=== PATIENT | female | born 1985 | race Caucasian/White ===

== ENCOUNTER 2020-10-18 13:22 | Emergency (ER) | payer BC, OTHER ==
[~2020-10-18] VITALS: Ht 26.3 cm; Wt 63.5 kg
[2020-10-18] MEDS ORDERED: ONDANSETRON 4 MG (ZOFRAN) ORAL DISSOLVE TAB PO STA (13:51)
--- NOTE | 2020-10-18 13:57 | ED General ---
General Stated Complaint: BARNETT,DIARRHEA,BARNETT Source of Information: Patient Exam Limitations: No Limitations History of Present Illness Date Seen by Provider: Oct 18, 2020 Time Seen by Provider: 13:56 Initial Comments To ER accompanied by her 14-year-old son both of whom have headache fever nausea vomiting diarrhea onset last night. Temperature max of 102. She questions food poisoning as she has symptoms along with several other members of her family that began after eating spaghetti. Timing/Duration: 1-2 Days Severity: Moderate Associated Systoms: Headaches, Nausea/Vomiting Allergies and Home Medications Allergies Coded Allergies: No Known Drug Allergies (Unverified , 10/18/20) Patient Home Medication List Home Medication List Reviewed: Yes Review of Systems Review of Systems Constitutional: see HPI, chills, fever, malaise EENTM: see HPI Respiratory: no symptoms reported Cardiovascular: no symptoms reported Gastrointestinal: abdominal pain, nausea, vomiting Genitourinary: no symptoms reported Musculoskeletal: no symptoms reported Skin: no symptoms reported Psychiatric/Neurological: No Symptoms Reported Hematologic/Lymphatic: No Symptoms Reported Physical Exam Vital Signs Vital Signs - First Documented 10/18/20 14:11 Temp 38.7 Pulse 132 Resp 20 B/P (MAP) 99/68 (78) Pulse Ox 96 O2 Delivery Room Air Capillary Refill : Height, Weight, BMI Height: '" Weight: lbs. oz. kg; BMI Method: General Appearance: No Apparent Distress, WD/WN Eyes: Bilateral Eye Normal Inspection, Bilateral Eye PERRL HEENT: PERRL/EOMI, TMs Normal Neck: Full Range of Motion, Normal Inspection Respiratory: No Accessory Muscle Use, No Respiratory Distress Cardiovascular: Regular Rate, Rhythm, Normal Peripheral Pulses Gastrointestinal: Normal Bowel Sounds, Soft, Tenderness Extremity: Normal Capillary Refill, Normal Inspection Neurologic/Psychiatric: Alert, Oriented x3 Skin: Normal Color, Warm/Dry Progress/Results/Core Measures Suspected Sepsis SIRS Temperature: Pulse: Respiratory Rate: Laboratory Tests 10/18/20 14:41: White Blood Count 9.4 Blood Pressure / Mean: Laboratory Tests 10/18/20 14:41: Creatinine 0.89, Platelet Count 201, Total Bilirubin 0.5 Results/Orders Lab Results Laboratory Tests Test 10/18/20 13:57 10/18/20 14:02 10/18/20 14:41 Range/Units Coronavirus 2019 ([facility]) Negative Negative White Blood Count 9.4 4.3-11.0 10^3/uL Red Blood Count 4.57 3.80-5.11 10^6/uL Hemoglobin 13.4 11.5-16.0 g/dL Hematocrit 40 35-52 % Mean Corpuscular Volume 88 80-99 fL Mean Corpuscular Hemoglobin 29 25-34 pg Mean Corpuscular Hemoglobin Concent 33 32-36 g/dL Red Cell Distribution Width 12.4 10.0-14.5 % Platelet Count 201 130-400 10^3/uL Mean Platelet Volume 10.2 9.0-12.2 fL Immature Granulocyte % (Auto) 0 % Neutrophils (%) (Auto) 82 H 42-75 % Lymphocytes (%) (Auto) 12 12-44 % Monocytes (%) (Auto) 5 0-12 % Eosinophils (%) (Auto) 0 0-10 % Basophils (%) (Auto) 0 0-10 % Neutrophils # (Auto) 7.8 1.8-7.8 10^3/uL Lymphocytes # (Auto) 1.1 1.0-4.0 10^3/uL Monocytes # (Auto) 0.5 0.0-1.0 10^3/uL Eosinophils # (Auto) 0.0 0.0-0.3 10^3/uL Basophils # (Auto) 0.0 0.0-0.1 10^3/uL Immature Granulocyte # (Auto) 0.0 0.0-0.1 10^3/uL Sodium Level 136 135-145 MMOL/L Potassium Level 3.6 3.6-5.0 MMOL/L Chloride Level 102 98-107 MMOL/L Carbon Dioxide Level 23 21-32 MMOL/L Anion Gap 11 5-14 MMOL/L Blood Urea Nitrogen 14 7-18 MG/DL Creatinine 0.89 0.60-1.30 MG/DL Estimat Glomerular Filtration Rate > 60 BUN/Creatinine Ratio 16 Glucose Level 103 70-105 MG/DL Calcium Level 8.5 8.5-10.1 MG/DL Corrected Calcium 8.4 L 8.5-10.1 MG/DL Total Bilirubin 0.5 0.1-1.0 MG/DL Aspartate Amino Transf (AST/SGOT) 16 5-34 U/L Alanine Aminotransferase (ALT/SGPT) 22 0-55 U/L Alkaline Phosphatase 74 40-136 U/L C-Reactive Protein High Sensitivity 3.00 H 0.00-0.50 MG/DL Total Protein 7.0 6.4-8.2 GM/DL Albumin 4.1 3.2-4.5 GM/DL Micro Results Microbiology 10/18/20 Influenza Types A,B Antigen ([facility]OS[facility]) - Final, Complete My Orders Orders - JOSSUE SMITH APRN Influenza A And B Antigens (10/18/20 13:51) Covid 19 Inhouse Test (10/18/20 13:51) Coronavirus Sars-Cov-2 So 2018 (10/18/20 13:51) Ondansetron Oral Dissolve Tab (Zofran (10/18/20 13:51) Ibuprofen Tablet (Motrin Tablet) (10/18/20 14:00) Cbc With Automated Diff (10/18/20 14:34) Comprehensive Metabolic Panel (10/18/20 14:34) Hs C Reactive Protein (10/18/20 14:34) Ed Iv/Invasive Line Start (10/18/20 14:34) Lactated Ringers (Lr 1000 Ml Iv Solution (10/18/20 14:45) Medications Given in ED Current Medications Medications Dose Ordered Sig/Ganesh Route Start Time Stop Time Status Last Admin Dose Admin Ibuprofen 800 mg ONCE ONCE PO 10/18/20 14:00 10/18/20 14:01 DC 10/18/20 14:19 800 MG Vital Signs/I&O 10/18/20 14:11 Temp 38.7 Pulse 132 Resp 20 B/P (MAP) 99/68 (78) Pulse Ox 96 O2 Delivery Room Air Capillary Refill : Departure Impression Primary Impression: Nausea and vomiting Qualified Codes: R11.2 - Nausea with vomiting, unspecified Additional Impressions: Diarrhea Qualified Codes: R19.7 - Diarrhea, unspecified Headache Qualified Codes: R51.9 - Headache, unspecified Disposition: 01 HOME, SELF-CARE Condition: Stable Departure-Patient Inst. Decision time for Depature: 15:21 Patient Instructions: No Instuctions Given Add. Discharge Instructions: 1. Do your best to avoid using Imodium. Drink plenty of fluids to stay hyd rated. Pedialyte is a great choice. Tylenol and ibuprofen for fever control. Follow-up with your doctor later this week for recheck. Return to ER for any worsening symptoms or bloody stools. Work/School Note: Work Release Form Date Seen in the Emergency Department: Oct 18, 2020 Return to Work: Oct 21, 2020 JOSSUE SMITH APRN Oct 18, 2020 13:57
[2020-10-18] MEDS ORDERED: IBUPROFEN 800 MG (MOTRIN) TAB PO ONE (14:00)
[2020-10-18] MEDS ORDERED: LACTATED RINGERS 1,000 ML IV SCH (14:45)
[2020-10-18 14:47] LABS: BASOPHILS % (AUTO) 0 % (0-10); EOSINOPHILS % (AUTO) 0 % (0-10); HEMATOCRIT 40 % (35-52); HEMOGLOBIN 13.4 g/dL (11.5-16.0); LYMPHOCYTES # (AUTO) 1.1 10^3/uL (1.0-4.0); LYMPHOCYTES % (AUTO) 12 % (12-44); MEAN CORPUSCULAR HEMOGLOBIN 29 pg (25-34); MEAN CORPUSCULAR HGB CONC 33 g/dL (32-36); MEAN CORPUSCULAR VOLUME 88 fL (80-99); MEAN PLATELET VOLUME 10.2 fL (9.0-12.2); MONOCYTES # (AUTO) 0.5 10^3/uL (0.0-1.0); MONOCYTES % (AUTO) 5 % (0-12); NEUTROPHILS # (AUTO) 7.8 10^3/uL (1.8-7.8); NEUTROPHILS % (AUTO) 82 % (42-75); PLATELET COUNT 201 10^3/uL (130-400); WHITE BLOOD COUNT 9.4 10^3/uL (4.3-11.0)
[2020-10-18 14:55] LABS: ALBUMIN 4.1 GM/DL (3.2-4.5); CHLORIDE 102 MMOL/L (98-107); POTASSIUM 3.6 MMOL/L (3.6-5.0); SODIUM 136 MMOL/L (135-145)
[2020-10-18 14:57] LABS: CALCIUM 8.5 MG/DL (8.5-10.1)
[2020-10-18 14:58] LABS: GLUCOSE 103 MG/DL (70-105)
[2020-10-18 14:59] LABS: CARBON DIOXIDE 23 MMOL/L (21-32)
[2020-10-18 15:00] LABS: BILIRUBIN,TOTAL 0.5 MG/DL (0.1-1.0)
[2020-10-18 15:01] LABS: ALKALINE PHOSPHATASE 74 U/L (40-136)
[2020-10-18 15:02] LABS: CREATININE SERUM 0.89 MG/DL (0.60-1.30); GFR ESTIMATED > 60
[2020-10-18 15:03] LABS: BUN/CREATININE RATIO 16
[2020-10-18 15:04] LABS: ALANINE AMINOTRANSFERASE 22 U/L (0-55)
[2020-10-18 15:50] VITALS: BP 110/74
== END 2020-10-18 15:52 | disposition home or self-care (01) ==
LOC: ER 13:25
DX: R11.2 Nausea with vomiting, unspecified (principal); R19.7 Diarrhea, unspecified; R51.9 Headache, unspecified; Z20.822 Contact with and (suspected) exposure to COVID-19
CPT/HCPCS: 80053; 85025; 86141; 87804; U0002; 36415; 87635

== ENCOUNTER 2021-06-09 12:57 | Emergency (ER) | payer BC ==
[~2021-06-09] VITALS: Ht 172.7 cm; Wt 65.8 kg
--- NOTE | 2021-06-09 13:25 | ED Abdominal Pain ---
General Stated Complaint: RLQ PAIN Source of Information: Patient Exam Limitations: No Limitations History of Present Illness Date Seen by Provider: Jun 09, 2021 Time Seen by Provider: 13:10 Initial Comments 36-year-old female with no significant past medical history coming in due to lower abdominal pain. Started abruptly at 1030 this morning and initially was on the left side of her abdomen and she thought it was gas pain. Pain is now moved to the right side of her abdomen, is moderate, constant, sharp. Associated nausea but no vomiting. No fever. Had a normal bowel movement yesterday but no diarrhea today. Has had pain like this in the left lower quadrant before and she said was related to her ovarian cyst. Denies ever havi ng pain like this on the right side. Is otherwise denying any other acute complaints. LMP was 2 days ago. She has had a tubal ligation. Denies any concerns for an STI. Is monogamous with her and is not having any unusual vaginal discharge. Allergies and Home Medications Allergies Coded Allergies: No Known Drug Allergies (Unverified , 10/18/20) Patient Home Medication List Home Medication List Reviewed: Yes Review of Systems Review of Systems Constitutional: No fever EENTM: No Symptoms Reported Respiratory: Denies Cough Cardiovascular: Denies Chest Pain Gastrointestinal: Abdominal Pain; Denies Diarrhea; Nausea; Denies Vomiting Genitourinary: Denies Burning, Denies Discharge, Denies Frequency, Denies Flank Pain, Denies Hematuria Musculoskeletal: No back pain, No joint pain Skin: No rash Psychiatric/Neurological: No Symptoms Reported Endocrine: No Symptoms Reported Hematologic/Lymphatic: No Symptoms Reported All Other Systems Reviewed Negative Unless Noted: Yes Past Lhkqghy-Apiwmk-Nzjofs Hx Patient Social History Tobacco Use?: Yes Tobacco type used: Cigarettes Past Medical History Surgeries: Yes Tubal Ligation Respiratory: No Cardiac: No Neurological: No Genitourinary: No Gastrointestinal: No Musculoskeletal: No Endocrine: No HEENT: No Cancer: No Psychosocial: No Integumentary: No Blood Disorders: No Physical Exam Vital Signs Vital Signs - First Documented 06/09/21 13:10 Temp 36.9 Pulse 91 Resp 18 B/P (MAP) 110/69 (83) Pulse Ox 100 O2 Delivery Room Air Capillary Refill : Height/Weight/BMI Height: '" Weight: lbs. oz. kg; 918.00 BMI Method: General Appearance: WD/WN, no apparent distress HEENT: PERRL/EOMI, normal ENT inspection, pharynx normal Neck: non-tender, full range of motion, supple, normal inspection Respiratory: chest non-tender, lungs clear, normal breath sounds, no respiratory distress, no accessory muscle use Cardiovascular: regular rate, rhythm, no edema, no murmur Gastrointestinal: normal bowel sounds, soft; No distended, No guarding, No rebound; tenderness (RLQ) Extremities: normal range of motion, non-tender, normal inspection, no pedal edema, no calf tenderness, normal capillary refill Back: normal inspection, no CVA tenderness, no vertebral tenderness Neurologic/Psychiatric: no motor/sensory deficits, alert, normal mood/affect Skin: normal color, warm/dry Lymphatic: no adenopathy Progress/Results/Core Measures Results/Orders Lab Results Laboratory Tests Test 06/09/21 13:11 06/09/21 13:24 Range/Units Urine Color YELLOW Urine Clarity SL CLOUDY Urine pH 6.0 5-9 Urine Specific [place] 1.020 1.016-1.022 Urine Protein NEGATIVE NEGATIVE Urine Glucose (UA) NEGATIVE NEGATIVE Urine Ketones NEGATIVE NEGATIVE Urine Nitrite NEGATIVE NEGATIVE Urine Bilirubin NEGATIVE NEGATIVE Urine Urobilinogen 0.2 < = 1.0 MG/DL Urine Leukocyte Esterase NEGATIVE NEGATIVE Urine RBC (Auto) 2+ H NEGATIVE Urine RBC 2-5 H /HPF Urine WBC 2-5 /HPF Urine Squamous Epithelial Cells 5-10 /HPF Urine Crystals NONE /LPF Urine Bacteria FEW H /HPF Urine Casts NONE /LPF Urine Mucus NEGATIVE /LPF Urine Culture Indicated NO White Blood Count 7.3 4.3-11.0 10^3/uL Red Blood Count 4.26 3.80-5.11 10^6/uL Hemoglobin 12.9 11.5-16.0 g/dL Hematocrit 38 35-52 % Mean Corpuscular Volume 90 80-99 fL Mean Corpuscular Hemoglobin 30 25-34 pg Mean Corpuscular Hemoglobin Concent 34 32-36 g/dL Red Cell Distribution Width 12.6 10.0-14.5 % Platelet Count 256 130-400 10^3/uL Mean Platelet Volume 10.3 9.0-12.2 fL Immature Granulocyte % (Auto) 0 % Neutrophils (%) (Auto) 52 42-75 % Lymphocytes (%) (Auto) 38 12-44 % Monocytes (%) (Auto) 8 0-12 % Eosinophils (%) (Auto) 2 0-10 % Basophils (%) (Auto) 0 0-10 % Neutrophils # (Auto) 3.8 1.8-7.8 10^3/uL Lymphocytes # (Auto) 2.8 1.0-4.0 10^3/uL Monocytes # (Auto) 0.6 0.0-1.0 10^3/uL Eosinophils # (Auto) 0.1 0.0-0.3 10^3/uL Basophils # (Auto) 0.0 0.0-0.1 10^3/uL Immature Granulocyte # (Auto) 0.0 0.0-0.1 10^3/uL Sodium Level 138 135-145 MMOL/L Potassium Level 3.5 L 3.6-5.0 MMOL/L Chloride Level 106 98-107 MMOL/L Carbon Dioxide Level 23 21-32 MMOL/L Anion Gap 9 5-14 MMOL/L Blood Urea Nitrogen 10 7-18 MG/DL Creatinine 0.87 0.60-1.30 MG/DL Estimat Glomerular Filtration Rate 75 BUN/Creatinine Ratio 11 Glucose Level 88 70-105 MG/DL Calcium Level 9.0 8.5-10.1 MG/DL Corrected Calcium 8.9 8.5-10.1 MG/DL Total Bilirubin 0.3 0.1-1.0 MG/DL Aspartate Amino Transf (AST/SGOT) 23 5-34 U/L Alanine Aminotransferase (ALT/SGPT) 24 0-55 U/L Alkaline Phosphatase 76 40-136 U/L Total Protein 6.8 6.4-8.2 GM/DL Albumin 4.1 3.2-4.5 GM/DL Lipase 15 8-78 U/L My Orders Orders - ARIELLA GRUBER MD Urine Bedside (06/09/21 13:18) Lipase (06/09/21 13:18) Ct Abd/Pelv W (Appendicitis) (06/09/21 13:18) Ondansetron Injection (Zofran Injectio (06/09/21 13:30) Morphine Injection (Morphine Injection (06/09/21 13:30) Cbc With Automated Diff (06/09/21 13:24) Iohexol Injection (Omnipaque 350 Mg/Ml 1 (06/09/21 13:45) Received Contrast (Hold Metformin- Contr (06/09/21 13:45) Ns (Ivpb) (Sodium Chloride 0.9% Ivpb Bag (06/09/21 13:45) Comprehensive Metabolic Panel (06/09/21 13:51) Ketorolac Injection (Toradol Injection) (06/09/21 14:15) Ketorolac Injection (Toradol Injection) (06/09/21 14:24) Us Non Ob Pelvis Comp/Transvag (06/09/21 14:26) Medications Given in ED Current Medications Medications Dose Ordered Sig/Ganesh Route Start Time Stop Time Status Last Admin Dose Admin Iohexol 100 ml ONCE ONCE IV 06/09/21 13:45 06/09/21 13:46 DC 06/09/21 13:56 85 ML Ketorolac Tromethamine 15 mg ONCE ONCE IVP 06/09/21 14:15 06/09/21 14:16 DC 06/09/21 14:26 15 MG Morphine Sulfate 4 mg ONCE ONCE IVP 06/09/21 13:30 06/09/21 13:31 DC 06/09/21 13:32 4 MG Ondansetron HCl 4 mg ONCE ONCE IVP 06/09/21 13:30 06/09/21 13:31 DC 06/09/21 13:32 4 MG Sodium Chloride 100 ml ONCE ONCE IV 06/09/21 13:45 06/09/21 13:46 DC 06/09/21 13:57 80 ML Vital Signs/I&O 06/09/21 13:10 Temp 36.9 Pulse 91 Resp 18 B/P (MAP) 110/69 (83) Pulse Ox 100 O2 Delivery Room Air Progress Progress Note : Progress Note 36-year-old female with above history coming in due to right lower quadrant abdominal pain. ABCs were intact and vitals were stable on presentation. Physical exam reassuring other than she does have right lower quadrant abdominal pain with no signs of peritonitis. Labs were reassuring with no obvious cause for pain. CT abdomen and pelvis negative on my interpretation specifically for any obvious appendicitis. Ultrasound then performed and was also negative for ovarian torsion. Pain improved after morphine and then Toradol IV. I repeated her abdominal exam and at this point she had no tenderness. I believe she is stable for discharge with outpatient follow-up. She was sent home with strict return precautions. Diagnostic Imaging Diagonstic Imaging: CT Plain Films/CT/US/NM/MRI: abdomen, pelvis Comments [facility], [place] NAME: CHER ROSADO [facility] REC#: [id number] PT STATUS: REG ER : 1985 PHYSICIAN: ARIELLA GRUBER MD ADMIT DATE: 06/09/21/ER Draft Date of Exam:06/09/21 CT ABD/PELV W (APPENDICITIS) EXAMINATION: CT abdomen and pelvis with contrast from 06/09/2021. TECHNIQUE: Multiple contiguous axial images were obtained through the abdomen and pelvis after the administration of intravenous contrast. All CT scans use one or more of the following dose optimizing techniques: automated exposure control, MA and/or KvP adjustment based on patient size and exam type or iterative reconstruction. INDICATION: Right lower quadrant pain since earlier today. Nausea. FINDINGS: Lung bases appear clear. Liver is unremarkable other than fatty infiltration. Gallbladder and spleen are normal. Adrenal glands and pancreas are unremarkable. Kidneys are within normal limits. There is no ascites or free air. Appendix is unremarkable. There is no acute osseous abnormality. IMPRESSION: 1. Normal appearance of the appendix. Incidental findings as noted above with no acute process appreciated. Dictated on workstation # [id number] Dict: 06/09/21 1402 Trans: 06/09/21 1418 [id number] Interpreted by: MARY REYES MD Electronically signed by: Departure Impression Primary Impression: RLQ abdominal pain Disposition: 01 HOME, SELF-CARE Condition: Improved Departure-Patient Inst. Decision time for Depature: 15:20 Referrals: NO,LOCAL PHYSICIAN (PCP/Family) Primary Care Physician Patient Instructions: Severe Abdominal Pain, Adult (DC), Pelvic Pain (DC) Add. Discharge Instructions: You were seen in the emergency department for lower abdominal pain. Your labs were reassuring, CT scan was negative for appendicitis or any other acute findings. An ultrasound was normal, specifically did not have any signs of ovarian torsion or any large ovarian cyst. If you develop pain that will not go away and that is worsening or severe, vomiting that will not go away, fever, or any other concerns then come back to the ER. ARIELLA GRUBER MD Jun 09, 2021 13:25
[2021-06-09 13:30] LABS: BILIRUBIN,URINE NEGATIVE (NEGATIVE); CLARITY,URINE SL CLOUDY; COLOR,URINE YELLOW; GLUCOSE, URINE (UA) NEGATIVE (NEGATIVE); KETONES,URINE NEGATIVE (NEGATIVE); LEUKOCYTE ESTERASE ,URINE NEGATIVE (NEGATIVE); NITRITE,URINE NEGATIVE (NEGATIVE); PROTEIN,URINE NEGATIVE (NEGATIVE)
[2021-06-09] MEDS ORDERED: morphine INJ 10 MG/ML 1ML (SYR OR VIAL) IVP ONE (13:30)
[2021-06-09] MEDS ORDERED: ONDANSETRON 4 MG/2 ML (SDV) Z0FRAN IVP ONE (13:30)
[2021-06-09 13:39] LABS: BASOPHILS % (AUTO) 0 % (0-10); EOSINOPHILS # (AUTO) 0.1 10^3/uL (0.0-0.3); EOSINOPHILS % (AUTO) 2 % (0-10); HEMATOCRIT 38 % (35-52); HEMOGLOBIN 12.9 g/dL (11.5-16.0); LYMPHOCYTES # (AUTO) 2.8 10^3/uL (1.0-4.0); LYMPHOCYTES % (AUTO) 38 % (12-44); MEAN CORPUSCULAR HEMOGLOBIN 30 pg (25-34); MEAN CORPUSCULAR HGB CONC 34 g/dL (32-36); MEAN CORPUSCULAR VOLUME 90 fL (80-99); MEAN PLATELET VOLUME 10.3 fL (9.0-12.2); MONOCYTES # (AUTO) 0.6 10^3/uL (0.0-1.0); MONOCYTES % (AUTO) 8 % (0-12); NEUTROPHILS # (AUTO) 3.8 10^3/uL (1.8-7.8); NEUTROPHILS % (AUTO) 52 % (42-75); PLATELET COUNT 256 10^3/uL (130-400); WHITE BLOOD COUNT 7.3 10^3/uL (4.3-11.0)
[2021-06-09 13:41] LABS: BACTERIA,URINE FEW /HPF
[2021-06-09] MEDS ORDERED: IOHEXOL 350 MG/ML 100 ML (OMNIPAQUE 350) VIAL IV ONE (13:45)
[2021-06-09] MEDS ORDERED: HOLD METFORMIN - RECEIVED CONTRAST 20 ML VIAL IV SCH (13:45)
[2021-06-09] MEDS ORDERED: NS 100 ML (IVPB) BAG IV ONE (13:45)
[2021-06-09 14:02] LABS: ALBUMIN 4.1 GM/DL (3.2-4.5)
[2021-06-09 14:03] LABS: POTASSIUM 3.5 MMOL/L (3.6-5.0)
[2021-06-09 14:05] LABS: TOTAL PROTEIN 6.8 GM/DL (6.4-8.2)
[2021-06-09 14:07] LABS: BILIRUBIN,TOTAL 0.3 MG/DL (0.1-1.0)
[2021-06-09 14:09] LABS: CREATININE SERUM 0.87 MG/DL (0.60-1.30)
[2021-06-09] MEDS ORDERED: KETOROLAC 15 MG/ML VIAL IVP ONE (14:15)
--- NOTE | 2021-06-09 14:19 | Diagnostic Imaging Report ---
EXAMINATION: CT abdomen and pelvis with contrast from 06/09/2021. TECHNIQUE: Multiple contiguous axial images were obtained through the abdomen and pelvis after the administration of intravenous contrast. All CT scans use one or more of the following dose optimizing techniques: automated exposure control, MA and/or KvP adjustment based on patient size and exam type or iterative reconstruction. INDICATION: Right lower quadrant pain since earlier today. Nausea. FINDINGS: Lung bases appear clear. Liver is unremarkable other than fatty infiltration. Gallbladder and spleen are normal. Adrenal glands and pancreas are unremarkable. Kidneys are within normal limits. There is no ascites or free air. Appendix is unremarkable. There is no acute osseous abnormality. IMPRESSION: 1. Normal appearance of the appendix. Incidental findings as noted above with no acute process appreciated. Dictated by: Dictated on workstation # [id number]
[2021-06-09] MEDS ORDERED: KETOROLAC 30 MG/ML VIAL ONE (14:24)
[2021-06-09 15:38] VITALS: BP 112/78
--- NOTE | 2021-06-09 16:16 | Diagnostic Imaging Report ---
CLINICAL INDICATION: Patient with right lower quadrant pain. Evaluate for torsion. EXAM: Transabdominal and transvaginal ultrasound of the pelvis. COMPARISON: CT scan of the abdomen and pelvis with contrast dated 06/09/2021. FINDINGS: The uterus has normal echogenicity and echotexture with normal shape and configuration. Uterus is anteverted. The uterus measures 7.4 cm x 4.8 cm x 6.4 cm. The endometrial stripe measures 5 mm. Bilateral ovarian follicles are noted. The right and left ovaries demonstrate normal configuration and echogenicity. Both ovaries demonstrate normal color Doppler flow and spectral Doppler waveform. There is no evidence of ovarian torsion. The right and left ovaries measure 3.5 cm x 2.2 cm x 1.5 cm and 2.5 cm x 1.3 cm x 1.8 cm. There is no significant free fluid within the pelvis. IMPRESSION: Unremarkable ultrasound of the pelvis. There is no evidence of ovarian torsion. Dictated by: Dictated on workstation # [id number]
== END 2021-06-09 15:38 | disposition home or self-care (01) ==
LOC: EDUNIT# 12:57 → ER 12:58
DX: R10.31 Right lower quadrant pain (principal); Z72.0 Tobacco use
CPT/HCPCS: 36415; 74177; 76830; 76856; 80053; 81000; 83690; 84703; 85025

== ENCOUNTER 2022-03-26 20:39 | Emergency (ER) | payer BC ==
[~2022-03-26] VITALS: Ht 172.7 cm; Wt 64.4 kg
[2022-03-26 20:48] VITALS: BP 132/76
[2022-03-26 21:06] LABS: BILIRUBIN,URINE NEGATIVE (NEGATIVE); CLARITY,URINE CLEAR; COLOR,URINE YELLOW; GLUCOSE, URINE (UA) NEGATIVE (NEGATIVE); KETONES,URINE NEGATIVE (NEGATIVE); LEUKOCYTE ESTERASE ,URINE NEGATIVE (NEGATIVE); NITRITE,URINE NEGATIVE (NEGATIVE); PROTEIN,URINE NEGATIVE (NEGATIVE)
[2022-03-26] MEDS ORDERED: fentaNYL INJ 100 MCG/2 ML AMP IVP STA (21:08)
--- NOTE | 2022-03-26 21:11 | ED Abdominal Pain ---
General Chief Complaint: Abdominal/GI Problems Stated Complaint: STOMACH PAIN/LOW GRADE FEVER Nursing Triage Note: pt ambulatory to room. pt states this am she was woken up with low middle abdominal pain, was seen at urgent care and they gave her a shot of toradol. pt states the toradol helped and now it is back Source of Information: Patient Exam Limitations: No Limitations (ARIELLA TIWARI) History of Present Illness Date Seen by Provider: Mar 26, 2022 Time Seen by Provider: 21:09 Initial Comments Patient is a 37-year-old female presents ED with lower abdominal pain. Pain is located to her lower mid abdomen. Pain is crampy and constant since last night. Sharp pain that radiates to her back on palpation. She has no urinary symptoms. Currently on her menstrual cycle that started Saturday. She reports passing of clots. She denies any vaginal discharge or concern for sexual transmitted infection. She went to urgent care was given Toradol without much improvement. She denies any nausea, vomiting, diarrhea. History of tubal ligation. Denies of any fever, chills, chest pain, shortness of breath, headache, dizziness, visual changes (ARIELLA TIWARI) Allergies and Home Medications Allergies Coded Allergies: No Known Drug Allergies (Unverified , 10/18/20) Patient Home Medication List Home Medication List Reviewed: Yes (ARIELLA TIWARI) Review of Systems Review of Systems Constitutional: No chills, No diaphoresis, No malaise EENTM: No Double Vision, No Eye Pain, No Mouth Swelling Respiratory: Denies Cough, Denies Orthopnea Cardiovascular: Denies Chest Pain, Denies Edema Gastrointestinal: Abdominal Pain; Denies Diarrhea, Denies Vomiting Genitourinary: Denies Burning, Denies Discharge Musculoskeletal: No back pain, No joint pain Skin: No change in color, No change in hair/nails Psychiatric/Neurological: Denies Anxiety, Denies Depressed (ARIELLA TIWARI) All Other Systems Reviewed Negative Unless Noted: Yes (ARIELLA TIWARI) Past Eiprwik-Krsfip-Gilqjv Hx Immunizations Up To Date First/Initial COVID19 Vaccinat: NONE Second COVID19 Vaccination Sesar: NONE (ARIELLA TIWARI) Past Medical History Surgeries: Yes Tubal Ligation Respiratory: No Cardiac: No Neurological: No Genitourinary: No Gastrointestinal: No Musculoskeletal: No Endocrine: No HEENT: No Cancer: No Psychosocial: No Integumentary: No Blood Disorders: No (ARIELLA TIWARI) Physical Exam Vital Signs Vital Signs - First Documented 03/26/22 20:48 Temp 36.8 Pulse 76 Resp 16 B/P (MAP) 132/76 (94) Pulse Ox 98 (JULIO,JOHNIE K DO) Vital Signs Capillary Refill : (ARIELAL TIWARI) Height/Weight/BMI Height: '" Weight: lbs. oz. kg; 21.00 BMI Method: General Appearance: WD/WN, no apparent distress HEENT: PERRL/EOMI, normal ENT inspection, TMs normal, pharynx normal Neck: non-tender, full range of motion, supple, normal inspection Respiratory: chest non-tender, lungs clear, normal breath sounds, no respiratory distress Cardiovascular: regular rate, rhythm, no edema, no gallop, no JVD Gastrointestinal: normal bowel sounds, soft, no organomegaly, no pulsatile mass, tenderness (Suprapubic tenderness on palpation) Extremities: normal range of motion, non-tender, normal inspection, no pedal edema Back: normal inspection, no CVA tenderness, no vertebral tenderness 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, no motor/sensory deficits, alert, normal mood/affect, oriented x 3 Skin: normal color, warm/dry (ARIELLA TIWARI) Progress/Results/Core Measures Results/Orders Lab Results Laboratory Tests Test 03/26/22 20:55 03/26/22 21:00 Range/Units White Blood Count 8.5 4.3-11.0 10^3/uL Red Blood Count 4.33 3.80-5.11 10^6/uL Hemoglobin 12.6 11.5-16.0 g/dL Hematocrit 38 35-52 % Mean Corpuscular Volume 89 80-99 fL Mean Corpuscular Hemoglobin 29 25-34 pg Mean Corpuscular Hemoglobin Concent 33 32-36 g/dL Red Cell Distribution Width 13.1 10.0-14.5 % Platelet Count 209 130-400 10^3/uL Mean Platelet Volume 10.5 9.0-12.2 fL Immature Granulocyte % (Auto) 0 % Neutrophils (%) (Auto) 44 42-75 % Lymphocytes (%) (Auto) 44 12-44 % Monocytes (%) (Auto) 8 0-12 % Eosinophils (%) (Auto) 3 0-10 % Basophils (%) (Auto) 1 0-10 % Neutrophils # (Auto) 3.7 1.8-7.8 10^3/uL Lymphocytes # (Auto) 3.8 1.0-4.0 10^3/uL Monocytes # (Auto) 0.7 0.0-1.0 10^3/uL Eosinophils # (Auto) 0.2 0.0-0.3 10^3/uL Basophils # (Auto) 0.0 0.0-0.1 10^3/uL Immature Granulocyte # (Auto) 0.0 0.0-0.1 10^3/uL Sodium Level 136 135-145 MMOL/L Potassium Level 3.5 L 3.6-5.0 MMOL/L Chloride Level 107 98-107 MMOL/L Carbon Dioxide Level 19 L 21-32 MMOL/L Anion Gap 10 5-14 MMOL/L Blood Urea Nitrogen 10 7-18 MG/DL Creatinine 0.81 0.60-1.30 MG/DL Estimat Glomerular Filtration Rate 97 BUN/Creatinine Ratio 12 Glucose Level 113 H 70-105 MG/DL Calcium Level 9.0 8.5-10.1 MG/DL Corrected Calcium 9.0 8.5-10.1 MG/DL Total Bilirubin 0.2 0.1-1.0 MG/DL Aspartate Amino Transf (AST/SGOT) 21 5-34 U/L Alanine Aminotransferase (ALT/SGPT) 22 0-55 U/L Alkaline Phosphatase 89 40-136 U/L Total Protein 6.7 6.4-8.2 GM/DL Albumin 4.0 3.2-4.5 GM/DL Lipase 16 8-78 U/L Urine Color YELLOW Urine Clarity CLEAR Urine pH 6.0 5-9 Urine Specific [place] <=1.005 1.016-1.022 Urine Protein NEGATIVE NEGATIVE Urine Glucose (UA) NEGATIVE NEGATIVE Urine Ketones NEGATIVE NEGATIVE Urine Nitrite NEGATIVE NEGATIVE Urine Bilirubin NEGATIVE NEGATIVE Urine Urobilinogen 0.2 < = 1.0 MG/DL Urine Leukocyte Esterase NEGATIVE NEGATIVE Urine RBC (Auto) 2+ H NEGATIVE Urine RBC 2-5 H /HPF Urine WBC 0-2 /HPF Urine Squamous Epithelial Cells 0-2 /HPF Urine Crystals NONE /LPF Urine Bacteria NEGATIVE /HPF Urine Casts NONE /LPF Urine Mucus NEGATIVE /LPF Urine Culture Indicated NO Urine Test NEGATIVE NEGATIVE (JOHNIE KIM DO) Medications Given in ED Current Medications Medications Dose Ordered Sig/Ganesh Route Start Time Stop Time Status Last Admin Dose Admin Iohexol 100 ml ONCE ONCE IV 03/26/22 21:45 03/26/22 21:46 DC 03/26/22 21:45 80 ML Sodium Chloride 10 ml NEEDED PRN IV 03/26/22 21:45 03/26/22 22:43 DC 03/26/22 21:45 10 ML Sodium Chloride 100 ml ONCE ONCE IV 03/26/22 21:45 03/26/22 21:46 DC 03/26/22 21:45 80 ML (JOHNIE KIM DO) Vital Signs/I&O 03/26/22 20:48 Temp 36.8 Pulse 76 Resp 16 B/P (MAP) 132/76 (94) Pulse Ox 98 (JOHNIE KIM DO) Blood Pressure Mean: 94 Departure Communication (PCP) Patient lab work was otherwise unremarkable. Urinalysis negative for infection or . She has some suprapubic tenderness. Patient has mild distress on palpation to her lower abd near the umbilicus. Negative Rovsing sign or psoas sign. Due to her current pain and location patient was given IV fentanyl with a order of CT scan of the abdomen and pelvis. CT of the abd and pelvis did not show any acute abnormality. She does report some heavy vaginal clots today. Currently on her menstrual cycle. Not concern for sexual transmitted infection. Due to the location of pain does not appear to be ovarian torsion. Denies history of endometriosis or severe abdominal pain with her menstrual cycles. P atient does have Toradol at home and states that this helped with her pain. If any worsening symptoms to return back to ED for further evaluation. If continue to trend with abnormal bleeding wit discomfort with menstrual cycle may need further Cna Hha follow-up and evaluation. No peritoneal symptoms (ARIELLA TIWARI) Impression Primary Impression: Abdominal pain Disposition: 01 HOME, SELF-CARE Condition: Stable Departure-Patient Inst. Decision time for Depature: 22:27 (ARIELLA TIWARI) Referrals: DEREK HOWARD DO (PCP/Family) Primary Care Physician Patient Instructions: Abdominal Pain, Adult ED Work/School Note: Work Release Form Date Seen in the Emergency Department: Mar 26, 2022 Return to Work: Mar 28, 2022 ATTENDING PHYSICIAN NOTE: I WAS PHYSICALLY PRESENT ER PHYSICIAN, BUT I WAS NOT INVOLVED IN ANY DECISION MAKING OR ANY CARE OF THIS PATIENT. (JOHNIE KIM DO) ARIELLA TIWARI Mar 26, 2022 21:11 JOHNIE KIM DO Mar 27, 2022 01:25
[2022-03-26 21:20] LABS: BASOPHILS % (AUTO) 1 % (0-10); EOSINOPHILS # (AUTO) 0.2 10^3/uL (0.0-0.3); EOSINOPHILS % (AUTO) 3 % (0-10); HEMATOCRIT 38 % (35-52); HEMOGLOBIN 12.6 g/dL (11.5-16.0); LYMPHOCYTES # (AUTO) 3.8 10^3/uL (1.0-4.0); LYMPHOCYTES % (AUTO) 44 % (12-44); MEAN CORPUSCULAR HEMOGLOBIN 29 pg (25-34); MEAN CORPUSCULAR HGB CONC 33 g/dL (32-36); MEAN CORPUSCULAR VOLUME 89 fL (80-99); MEAN PLATELET VOLUME 10.5 fL (9.0-12.2); MONOCYTES # (AUTO) 0.7 10^3/uL (0.0-1.0); MONOCYTES % (AUTO) 8 % (0-12); NEUTROPHILS # (AUTO) 3.7 10^3/uL (1.8-7.8); NEUTROPHILS % (AUTO) 44 % (42-75); PLATELET COUNT 209 10^3/uL (130-400); WHITE BLOOD COUNT 8.5 10^3/uL (4.3-11.0)
[2022-03-26 21:22] LABS: BACTERIA,URINE NEGATIVE /HPF; SQUAMOUS EPITHELIAL CELL,UR 0-2 /HPF; WBC,URINE 0-2 /HPF
[2022-03-26 21:23] LABS: POTASSIUM 3.5 MMOL/L (3.6-5.0)
[2022-03-26 21:25] LABS: TOTAL PROTEIN 6.7 GM/DL (6.4-8.2)
[2022-03-26 21:27] LABS: BILIRUBIN,TOTAL 0.2 MG/DL (0.1-1.0)
[2022-03-26 21:29] LABS: CREATININE SERUM 0.81 MG/DL (0.60-1.30)
[2022-03-26] MEDS ORDERED: NS 100 ML (IVPB) BAG IV ONE (21:45)
[2022-03-26] MEDS ORDERED: HOLD METFORMIN - RECEIVED CONTRAST 20 ML VIAL IV SCH (21:45)
[2022-03-26] MEDS ORDERED: IOHEXOL 350 MG/ML 100 ML (OMNIPAQUE 350) VIAL IV ONE (21:45)
[2022-03-26] MEDS ORDERED: CATHETER FLUSH 10 ML SYR IV PRN (21:45)
--- NOTE | 2022-03-26 22:04 | Diagnostic Imaging Report ---
EXAMINATION: CT abdomen and pelvis with intravenous contrast. TECHNIQUE: Multiple contiguous axial images were obtained through the abdomen and pelvis after the uneventful administration of intravenous contrast. All CT scans use one or more of the following dose optimizing techniques: automated exposure control, MA and/or KvP adjustment based on patient size and exam type or iterative reconstruction. HISTORY: Right lower quadrant abdominal pain. Pelvic pain. Nausea. COMPARISON: 06/09/2021. FINDINGS: The heart is unremarkable. The included lung bases are clear. The liver, spleen, pancreas, adrenal glands, and kidneys have a normal appearance. The gallbladder is decompressed. There is no pathologically enlarged mesenteric or retroperitoneal adenopathy. The bowel loops are nondilated. The appendix is visualized in the right lower quadrant and has a normal appearance. There is no free fluid or free air. No acute osseous abnormalities. Ureters and bladder are grossly normal. There is no free air, loculated collection, or adenopathy in the pelvis. IMPRESSION: 1. Normal appendix. No bowel obstruction. No free fluid or free air. Dictated by: Dictated on workstation # [id number]
== END 2022-03-26 22:38 | disposition home or self-care (01) ==
LOC: EDUNIT# 20:39 → ER 20:40
DX: R10.30 Lower abdominal pain, unspecified (principal); Z32.02 Encounter for pregnancy test, result negative; Z28.310 Unvaccinated for COVID-19
CPT/HCPCS: 36415; 74177; 80053; 81000; 83690; 84703; 85025

== ENCOUNTER 2023-03-08 22:46 | Emergency (ER) | payer BC ==
[~2023-03-08] VITALS: Ht 172.7 cm; Wt 65.0 kg
[2023-03-08] MEDS ORDERED: FLUO10TA28 (22:58)
[2023-03-08 23:45] LABS: BILIRUBIN,URINE NEGATIVE (NEGATIVE); CLARITY,URINE CLEAR; COLOR,URINE YELLOW; GLUCOSE, URINE (UA) NEGATIVE (NEGATIVE); KETONES,URINE NEGATIVE (NEGATIVE); LEUKOCYTE ESTERASE ,URINE TRACE (NEGATIVE); NITRITE,URINE NEGATIVE (NEGATIVE); PROTEIN,URINE NEGATIVE (NEGATIVE)
[2023-03-08] MEDS ORDERED: LIDOCAINE 2% VISCOUS 15 ML UDC PO ONE (23:45)
[2023-03-08] MEDS ORDERED: ANTACID SUSP 30 ML UDC (MYLANTA) PO ONE (23:45)
[2023-03-08] MEDS ORDERED: ONDANSETRON 4 MG/2 ML (SDV) Z0FRAN IVP ONE (23:45)
[2023-03-08 23:46] LABS: BASOPHILS % (AUTO) 0 % (0-10); EOSINOPHILS # (AUTO) 0.2 10^3/uL (0.0-0.3); EOSINOPHILS % (AUTO) 2 % (0-10); HEMATOCRIT 36 % (35-52); HEMOGLOBIN 12.2 g/dL (11.5-16.0); LYMPHOCYTES # (AUTO) 3.4 10^3/uL (1.0-4.0); LYMPHOCYTES % (AUTO) 41 % (12-44); MEAN CORPUSCULAR HEMOGLOBIN 29 pg (25-34); MEAN CORPUSCULAR HGB CONC 34 g/dL (32-36); MEAN CORPUSCULAR VOLUME 87 fL (80-99); MEAN PLATELET VOLUME 9.8 fL (9.0-12.2); MONOCYTES # (AUTO) 0.9 10^3/uL (0.0-1.0); MONOCYTES % (AUTO) 10 % (0-12); NEUTROPHILS % (AUTO) 47 % (42-75); PLATELET COUNT 262 10^3/uL (130-400); WHITE BLOOD COUNT 8.4 10^3/uL (4.3-11.0)
--- NOTE | 2023-03-08 23:48 | ED Abdominal Pain ---
General Chief Complaint: Abdominal/GI Problems Stated Complaint: ABD PAIN Nursing Triage Note: C/O EPIGASTRIC PAIN RADIATING DOWN ABDOMEN SINCE 03/01/23. SEEN AT [facility] FOR SAME 03/05/23 CT/US DONE. PT REPORTS CONTINUED PAIN/BLOATING, DIFFICULTY STARTING URINE STREAM, VOMITTED ONCE AFTER DINNER TODAY. Source of Information: Patient, Family Exam Limitations: No Limitations (MARSHALL BURK) History of Present Illness Date Seen by Provider: Mar 08, 2023 Time Seen by Provider: 23:10 Initial Comments Our patient is a 38 yo F who presents to the emergency department with a chief complaint of mid-line abdominal pain that is most severe in the epigastric region. She states that this pain started on 03/01 and notes that the pain typically begins in the epigastric region and radiates down the abdomen to the area overlying her bladder. This pain is worsened by eating and is more severe with spicy foods. Liquids do not seem to exacerbate the pain, nor does any specific bodily position. Jarring movements and palpation worsen the pain. She has tried ibuprofen, tylenol, naproxen, tums, and milk with no improvement in her symptoms. In addition she notes vomiting after eating solid foods and states that it is sometimes tinged with blood, as well as a feeling of abdominal bloating. She denies recent illness or fever. On 03/05, she was seen at [facility] for this issue and an ultrasound and CT scan were done but she does not know the results of these studies. At this visit, she noticed purple urine during collection and was subsequently told that the sample was positive for blood. For the last few days she has had difficulty starting a urinary stream but denies pain with urination. Previous medical history of depression treated with fluoxetine. Previous surgical history of a tubal ligation done 11 years ago in [place]. Timing/Duration: 1 Week, Getting Worse Severity/Quality: Moderate, Cramping, Sharp Location: RUQ, RLQ, Epigastric, Suprapubic Modifying Factors: Improves With Coughing, Improves With Eating, Improves With Movement Associated Symptoms: No Back Pain, No Diaphoresis, No Fever/Chills; Nausea/Vo miting, Other (bloating) (MARSHALL BURK) Allergies and Home Medications Allergies Coded Allergies: No Known Drug Allergies (Unverified , 10/18/20) Patient Home Medication List Home Medication List Reviewed: Yes (MARSHALL BURK) Fluoxetine HCl (Fluoxetine HCl) 10 Mg Tablet, (Reported) Entered as Reported by: AMMON CAMERON on 03/08/23 [id number] Last Action: New Order Review of Systems Review of Systems Constitutional: no symptoms reported; No chills, No fever EENTM: No Symptoms Reported Respiratory: No Symptoms Reported; Denies Cough, Denies Shortness of Air Cardiovascular: No Symptoms Reported; Denies Chest Pain Gastrointestinal: See HPI, Abdomen Distended, Abdominal Pain, Nausea, Vomiting Genitourinary: See HPI; Denies Flank Pain; Hematuria, Other (Difficulty starting a stream) Musculoskeletal: no symptoms reported Skin: no symptoms reported Psychiatric/Neurological: See HPI Endocrine: No Symptoms Reported Hematologic/Lymphatic: Anemia (Prescribed iron pills at her last PCP visit) (MARSHALL BURK) All Other Systems Reviewed Negative Unless Noted: Yes (MARSHALL BURK) Past Hggaekh-Bljvko-Xaarar Hx Patient Social History Tobacco Use?: Yes Tobacco type used: Cigarettes Smoking Status: Former Smoker Smokeless Tobacco Frequency: Former User Use of E-Cig and/or Vaping dev: Yes E-Cig or Vaping type used: Nicotine Use of E-Cig and/or Vaping Benedict: Current Everyday User Substance use?: No Alcohol Use?: No Pt feels they are or have been: No (MARSHALL BURK) Immunizations Up To Date First/Initial COVID19 Vaccinat: NONE Second COVID19 Vaccination Sesar: NONE Third COVID19 Vaccination Date: NONE (MARSHALL BURK) Past Medical History Surgery/Hospitalization HX: depression, tubal ligation complicated by post-op sepsis 11 years ago, 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 Surgeries: Yes Tubal Ligation Respiratory: No Cardiac: No Neurological: No Female Reproductive Disorders: Menstrual Problems (History of heavy, painful periods) 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 oz. kg; 21.00 BMI Method: General Appearance: WD/WN, mild distress HEENT: PERRL/EOMI, normal ENT inspection Neck: normal inspection Respiratory: chest non-tender, lungs clear, normal breath sounds, no resp iratory distress, no accessory muscle use Cardiovascular: normal peripheral pulses, regular rate, rhythm, no edema, no gallop, no JVD, no murmur Peripheral Pulses: 2+ Radial Pulses (R), 2+ Radial Pulses (L) Gastrointestinal: normal bowel sounds, no pulsatile mass, distended, tenderness (Most severe tenderness in the epigastric region but diffusely tender in RUQ, RLQ, and suprapubic regions) Rectal: deferred Extremities: normal range of motion, non-tender, normal inspection, no pedal edema Back: normal inspection, no CVA tenderness Neurologic/Psychiatric: alert, normal mood/affect, oriented x 3 Skin: normal color, warm/dry (MARSHALL BURK) Progress/Results/Core Measures Results/Orders Lab Results Laboratory Tests Test 03/08/23 22:56 03/08/23 23:37 Range/Units Urine Color YELLOW Urine Clarity CLEAR Urine pH 6.0 5-9 Urine Specific [place] 1.020 1.016-1.022 Urine Protein NEGATIVE NEGATIVE Urine Glucose (UA) NEGATIVE NEGATIVE Urine Ketones NEGATIVE NEGATIVE Urine Nitrite NEGATIVE NEGATIVE Urine Bilirubin NEGATIVE NEGATIVE Urine Urobilinogen 0.2 < = 1.0 MG/DL Urine Leukocyte Esterase TRACE H NEGATIVE Urine RBC (Auto) 1+ H NEGATIVE Urine RBC 5-10 H /HPF Urine WBC 0-2 /HPF Urine Squamous Epithelial Cells 2-5 /HPF Urine Crystals NONE /LPF Urine Bacteria LARGE H /HPF Urine Casts NONE /LPF Urine Mucus SMALL H /LPF Urine Culture Indicated YES White Blood Count 8.4 4.3-11.0 10^3/uL Red Blood Count 4.20 3.80-5.11 10^6/uL Hemoglobin 12.2 11.5-16.0 g/dL Hematocrit 36 35-52 % Mean Corpuscular Volume 87 80-99 fL Mean Corpuscular Hemoglobin 29 25-34 pg Mean Corpuscular Hemoglobin Concent 34 32-36 g/dL Red Cell Distribution Width 12.7 10.0-14.5 % Platelet Count 262 130-400 10^3/uL Mean Platelet Volume 9.8 9.0-12.2 fL Immature Granulocyte % (Auto) 0 % Neutrophils (%) (Auto) 47 42-75 % Lymphocytes (%) (Auto) 41 12-44 % Monocytes (%) (Auto) 10 0-12 % Eosinophils (%) (Auto) 2 0-10 % Basophils (%) (Auto) 0 0-10 % Neutrophils # (Auto) 4.0 1.8-7.8 10^3/uL Lymphocytes # (Auto) 3.4 1.0-4.0 10^3/uL Monocytes # (Auto) 0.9 0.0-1.0 10^3/uL Eosinophils # (Auto) 0.2 0.0-0.3 10^3/uL Basophils # (Auto) 0.0 0.0-0.1 10^3/uL Immature Granulocyte # (Auto) 0.0 0.0-0.1 10^3/uL Sodium Level 139 135-145 MMOL/L Potassium Level 3.4 L 3.6-5.0 MMOL/L Chloride Level 107 98-107 MMOL/L Carbon Dioxide Level 23 21-32 MMOL/L Anion Gap 9 5-14 MMOL/L Blood Urea Nitrogen 9 7-18 MG/DL Creatinine 0.85 0.60-1.30 MG/DL Estimat Glomerular Filtration Rate 91 BUN/Creatinine Ratio 11 Glucose Level 101 70-105 MG/DL Calcium Level 9.2 8.5-10.1 MG/DL Corrected Calcium 9.0 8.5-10.1 MG/DL Total Bilirubin 0.3 0.1-1.0 MG/DL Aspartate Amino Transf (AST/SGOT) 16 5-34 U/L Alanine Aminotransferase (ALT/SGPT) 19 0-55 U/L Alkaline Phosphatase 85 40-136 U/L C-Reactive Protein High Sensitivity 0.25 0.00-0.50 MG/DL Total Protein 6.9 6.4-8.2 GM/DL Albumin 4.2 3.2-4.5 GM/DL Lipase 11 8-78 U/L Serum Test, Qualitative NEGATIVE NEGATIVE (XAVIER JOSE MD) My Orders Orders - XAVIER JOSE MD Cbc With Automated Diff (03/08/23 23:31) Comprehensive Metabolic Panel (03/08/23 23:31) Hs C Reactive Protein (03/08/23 23:31) Hcg,Qualitative Serum (03/08/23 23:31) Lipase (03/08/23 23:31) Ua Culture If Indicated (03/08/23 23:31) Ed Iv/Invasive Line Start (03/08/23 23:32) Ondansetron Injection (Zofran Injectio (03/08/23 23:45) Lidocaine 2% Viscous 15 Ml (Xylocaine Vi (03/08/23 23:45) Antacid Suspension (Mylanta Suspension (03/08/23 23:45) Urine Culture (03/08/23 22:56) Ondansetron Injection (Zofran Injectio (03/09/23 01:45) Fentanyl Inj (Sublimaze Injection) (03/09/23 01:45) Pantoprazole Injection (Protonix Injecti (03/09/23 01:45) Cephalexin Capsule (Keflex Capsule) (03/09/23 03:15) Fentanyl Inj (Sublimaze Injection) (03/09/23 03:15) Rx-Hydrocodone/Apap 5-325 Mg (Rx-Vicodin (03/09/23 03:15) Rx-Ondansetron Po (Rx-Zofran Po) (03/09/23 03:08) (XAVIER JOSE MD) Medications Given in ED Current Medications Medications Dose Ordered Sig/Ganesh Route Start Time Stop Time Status Last Admin Dose Admin Al Hydrox/Mg Hydrox/Simethicone 30 ml ONCE ONCE PO 03/08/23 23:45 03/08/23 23:46 DC 03/08/23 23:53 30 ML Fentanyl Citrate 50 mcg ONCE ONCE IVP 03/09/23 01:45 03/09/23 01:46 DC 03/09/23 01:52 50 MCG Lidocaine HCl 15 ml ONCE ONCE PO 03/08/23 23:45 03/08/23 23:46 DC 03/08/23 23:53 15 ML Ondansetron HCl 4 mg ONCE ONCE IVP 03/08/23 23:45 03/08/23 23:46 DC 03/08/23 23:53 4 MG Ondansetron HCl 4 mg ONCE ONCE IVP 03/09/23 01:45 03/09/23 01:46 DC 03/09/23 01:52 4 MG Pantoprazole 40 mg ONCE ONCE IV 03/09/23 01:45 03/09/23 01:46 DC 03/09/23 01:51 40 MG (XAVIER JOSE MD) Vital Signs/I&O 03/08/23 22:52 Temp 36.9 Pulse 71 Resp 16 B/P (MAP) 132/83 (99) Pulse Ox 99 O2 Delivery Room Air (XAVIER JOSE MD) Blood Pressure Mean: 99 Departure Impression Primary Impression: Epigastric pain Additional Impressions: Nausea & vomiting Qualified Codes: R11.2 - Nausea with vomiting, unspecified Lower abdominal pain Urinary tract infection Qualified Codes: N39.0 - Urinary tract infection, site not specified Disposition: HOME, SELF-CARE Condition: Stable Departure-Patient Inst. Decision time for Depature: 03:11 (XAVIER JOSE MD) Referrals: DEREK HOWARD DO (PCP/Family) Primary Care Physician Patient Instructions: Abdominal Pain, Adult ED Add. Discharge Instructions: Adhere to a noncarbonated clear liquid diet until you receive results of your imaging studies. Use Zofran (ondansetron) dissolved under the tongue every 4 hours as needed for nausea and vomiting. You may take hydrocodone 1 tablet every 4 hours as needed for pain. If you do not hear from the emergency room by 9:00 this morning, please contact the [facility] to obtain the results of your imaging studies. There is suggestion of urinary tract infection on your urine specimen in the emergency room. Please continue the Keflex (cephalexin) antibiotic as prescribed until urine cultures can be reviewed by your primary care provider. Urine culture should be available by Saturday. You may also use an wwur-pme-isatfvk antiacid medication such as Pepcid (famotidine) 20 mg twice daily or omeprazole 20 mg daily. Return to the emergency room if you have worsening symptoms despite following these instructions. All discharge instructions reviewed with patient and/or family. Voiced understanding. Scripts Ondansetron (Ondansetron Odt) 4 Mg Tab.rapdis 4 MG SL Q4H PRN for NAUSEA/VOMITING, #10 TAB Prov: XAVIER JOSE MD 03/09/23 Hydrocodone/Acetaminophen (Hydrocodone-Acetamin 5-325 mg) 5 Mg-325 Mg Tablet 1 TAB PO Q4H PRN for PAIN-MODERATE (5-7), #10 TAB Prov: XAVIER JOSE MD 03/09/23 Cephalexin (Cephalexin) 500 Mg Tablet 500 MG PO TID, #20 TAB Prov: XAVIER JOSE MD 03/09/23 MARSHALL BURK Mar 08, 2023 23:48 XAVIER JOSE MD Mar 09, 2023 03:11
[2023-03-08 23:57] LABS: ALBUMIN 4.2 GM/DL (3.2-4.5); POTASSIUM 3.4 MMOL/L (3.6-5.0)
[2023-03-08 23:58] LABS: CALCIUM 9.2 MG/DL (8.5-10.1)
[2023-03-09] LABS: TOTAL PROTEIN 6.9 GM/DL (6.4-8.2)
[2023-03-09 00:01] LABS: BILIRUBIN,TOTAL 0.3 MG/DL (0.1-1.0)
[2023-03-09 00:03] LABS: CREATININE SERUM 0.85 MG/DL (0.60-1.30)
[2023-03-09 00:04] LABS: BACTERIA,URINE LARGE /HPF; WBC,URINE 0-2 /HPF
[2023-03-09] MEDS ORDERED: ONDANSETRON 4 MG/2 ML (SDV) Z0FRAN IVP ONE (01:45)
[2023-03-09] MEDS ORDERED: PANTOPRAZOLE 40 MG (PROTONIX) VIAL IV ONE (01:45)
[2023-03-09] MEDS ORDERED: fentaNYL INJ 100 MCG/2 ML AMP IVP ONE ×2 (01:45→03:15)
[2023-03-09] MEDS ORDERED: RX-ONDANSETRON 4 MG ODT (ZOFRAN) PPK #4 SL STA (03:08)
[2023-03-09] MEDS ORDERED: CEPHALEXIN 250 MG (KEFLEX) CAP PO ONE (03:15)
[2023-03-09] MEDS ORDERED: CEPH500T PO (03:16)
[2023-03-09] MEDS ORDERED: ONDA4TAB11 SL (03:16)
[2023-03-09] MEDS ORDERED: ACHD5005 PO (03:16)
[2023-03-09 03:31] VITALS: BP 125/83
== END 2023-03-09 03:33 | disposition home or self-care (01) ==
LOC: EDUNIT# 22:46 → ER 22:48
DX: R10.13 Epigastric pain (principal); N39.0 Urinary tract infection, site not specified; R11.2 Nausea with vomiting, unspecified; F17.290 Nicotine dependence, other tobacco product, uncomplicated; Z28.310 Unvaccinated for COVID-19
CPT/HCPCS: 36415; 80053; 81000; 83690; 84703; 85025; 86141; 87077; 87088

== ENCOUNTER → 2023-04-17 | Outpatient (CLI) | payer BC, OTHER ==
[~2023-04-17] MED LIST: ACHD5005 PO; CEPH500T PO; FLUO10TA28; ONDA4TAB11 SL
== END ==
LOC: CARD 08:30
PROVIDERS: ATTEND Nurse Practitioner Family
DX: R00.2 Palpitations (principal)
CPT/HCPCS: 93225; 93226

== ENCOUNTER 2023-05-02 05:30 | Outpatient (CLI) | payer OTHER ==
[~2023-05-02] VITALS: Ht 172.7 cm; Wt 68.2 kg
[2023-05-07] MEDS ORDERED: ACHD5005 PO (10:22)
[2023-05-07] MEDS ORDERED: IBUP-1773 PO (10:22)
== END 2023-05-02 12:03 | disposition home or self-care (01) ==
LOC: PREOP 05:30
PROVIDERS: ATTEND Obstetrics & Gynecology
DX: Z01.818 Encounter for other preprocedural examination (principal)

== ENCOUNTER 2023-05-07 08:35 | Day surgery (SDC) | payer OTHER ==
[~2023-05-07] VITALS: Ht 172.7 cm; Wt 68.2 kg
[2023-05-07] VITALS (10 sets, daily range): BP systolic 85–116; BP diastolic 43–85
[2023-05-07] MEDS ORDERED: LACTATED RINGERS 1,000 ML 1,000 ML IV PRN (09:00)
[2023-05-07 09:21] LABS: BASOPHILS % (AUTO) 0 % (0-10); EOSINOPHILS # (AUTO) 0.1 10^3/uL (0.0-0.3); EOSINOPHILS % (AUTO) 1 % (0-10); HEMATOCRIT 35 % (35-52); HEMOGLOBIN 11.8 g/dL (11.5-16.0); LYMPHOCYTES # (AUTO) 2.4 10^3/uL (1.0-4.0); LYMPHOCYTES % (AUTO) 32 % (12-44); MEAN CORPUSCULAR HEMOGLOBIN 29 pg (25-34); MEAN CORPUSCULAR HGB CONC 34 g/dL (32-36); MEAN CORPUSCULAR VOLUME 86 fL (80-99); MEAN PLATELET VOLUME 10.2 fL (9.0-12.2); MONOCYTES # (AUTO) 0.7 10^3/uL (0.0-1.0); MONOCYTES % (AUTO) 9 % (0-12); NEUTROPHILS # (AUTO) 4.3 10^3/uL (1.8-7.8); NEUTROPHILS % (AUTO) 57 % (42-75); PLATELET COUNT 237 10^3/uL (130-400); WHITE BLOOD COUNT 7.6 10^3/uL (4.3-11.0)
[2023-05-07] MEDS ORDERED: proPOfol INJECTION 200 MG/20 ML VIAL IV ONE (09:22)
[2023-05-07] MEDS ORDERED: dexAMETHasone INJ 10 MG/ML 1 ML VIAL ONE (09:22)
[2023-05-07] MEDS ORDERED: SEVOFLURANE (ULTANE) 15 ML INHAL SOLN ONE (09:22)
[2023-05-07] MEDS ORDERED: LIDOCAINE PF 2% 5 ML VIAL ONE (09:22)
[2023-05-07] MEDS ORDERED: ONDANSETRON INJECTION 4 MG/2 ML (SDV) ONE (09:22)
[2023-05-07] MEDS ORDERED: KETOROLAC INJ 30 MG/ML VIAL ONE ×2 (09:22→10:18)
[2023-05-07] MEDS ORDERED: fentaNYL INJECTION 100 MCG/2 ML VIAL ONE (09:23)
[2023-05-07] MEDS ORDERED: MIDAZOLAM INJ 2 MG/2 ML VIAL ONE (09:23)
[2023-05-07] MEDS ORDERED: BUPIVACAINE 0.25% 30 ML VIAL ONE (09:43)
--- NOTE | 2023-05-07 10:19 | Progress Note-Pre Operative ---
Pre-Operative Progress Note Date of Available H&P: May 07, 2023 Date H&P Reviewed: May 07, 2023 Time H&P Reviewed: 10:10 History & Physical: H&P Reviewed, Patient Examed, No changes noted Pre-Operative Diagnosis: AUB- Menorrhagia BRANT GIRON DO May 07, 2023 10:18
--- NOTE | 2023-05-07 10:20 | Discharge Inst-Women's Service ---
Discharge Inst-Women's Serv Depart Medication/Instructions New, Converted or Re-Newed RX: Transmitted to Pharmacy Problems Reviewed?: Yes Consults/Follow Up Additional Follow Up: Yes Activity Activity: Activity as Tolerated (do not drive while taking narcotic) Driving Instructions: You May Drive NO SMOKING: NO SMOKING Nothing Inside Vagina: No Douching, No [place], No Tampons Diet Discharge Diet: No Restrictions Symptoms to Report to : Bleeding Excessive, Pain Increased For Any Problems or Questions: Contact Your Physician BRANT GIRON DO May 07, 2023 10:20
[2023-05-07] MEDS ORDERED: ACHD5005 PO (10:22)
[2023-05-07] MEDS ORDERED: IBUP-1773 PO (10:22)
[2023-05-07] MEDS ORDERED: ONDANSETRON INJECTION 4 MG/2 ML (SDV) IVP PRN ×2 (10:30→11:15)
[2023-05-07] MEDS ORDERED: KETOROLAC INJ 30 MG/ML VIAL IVP ONE (10:30)
[2023-05-07] MEDS ORDERED: HYDROcodone/ACETAMINOPHEN 5 MG/325 MG TABLET PO PRN (10:30)
[2023-05-07] MEDS ORDERED: D5 LR 1,000 ML IV SOLN 1,000 ML IV SCH (10:30)
[2023-05-07] MEDS ORDERED: BUPIVACAINE 0.25% 30 ML VIAL INJ ONE (10:32)
--- NOTE | 2023-05-07 11:10 | Anesthesia-General Post-Op ---
General Patient Condition Mental Status/LOC: Same as Preop Cardiovascular: Satisfactory Nausea/Vomiting: Absent Respiratory: Satisfactory Pain: Controlled Complications: Absent Post Op Complications Complications None Follow Up Care/Instructions Patient Instructions None needed. Anesthesia/Patient Condition Patient Condition Patient is doing well, no complaints, stable vital signs, no apparent adverse anesthesia problems. No complications reported per nursing. AMENA FINN CRNA May 07, 2023 11:10
[2023-05-07] MEDS ORDERED: HYDROmorphone INJECTION 2 MG/ML VIAL IV ONE (11:15)
[2023-05-07] MEDS ORDERED: fentaNYL INJECTION 100 MCG/2 ML VIAL IVP ONE (11:15)
[2023-05-07] MEDS ORDERED: morphine INJ 10 MG/ML 1ML (SYR OR VIAL) IVP ONE (11:15)
[2023-05-07] MEDS ORDERED: MEPERIDINE INJ 50 MG/ML VIAL IVP ONE (11:15)
--- NOTE | 2023-05-07 15:03 | OPERATIVE REPORT ---
DATE OF SERVICE: 05/07/2023 PREOPERATIVE DIAGNOSIS: A 38-year-old female with abnormal uterine bleeding. POSTOPERATIVE DIAGNOSIS: A 38-year-old female with abnormal uterine bleeding. PROCEDURES: D and C, hysteroscopy with Kayla endometrial ablation. SURGEON: Ovidio Giron DO. ANESTHESIA: LMA general. ESTIMATED BLOOD LOSS: Minimal. URINE OUTPUT: 200 mL drained at the end of the procedure. FLUIDS: 800 mL of lactated Ringer's solution. FINDINGS: Grossly normal-appearing external female genitalia. Grossly normal-appearing intrauterine cavity with slightly thickened endometrium noted on curettings. SPECIMEN SENT: Endometrial curettings. INDICATIONS FOR PROCEDURE: This 38-year-old female, who is a patient had sought care in my office. She wished to proceed with hysterectomy as a more definitive measures for stopping her bleeding; however, she had not tried more conservative measures in the form of ablation or D and C. We discussed this in the office and decided to proceed with both D and C and ablation the same time for potential curative properties as well as diagnostic properties and nature of the procedure. Risks of the procedure were discussed with the patient in detail and after all of her questions were answered, she was agreeable to proceed. Consent was obtained. The patient was taken to the operating room. OPERATIVE REPORT IN DETAIL: Once in the operating room, anesthesia was administered and found to be adequate. She was placed in the dorsal lithotomy position, prepped and draped in normal sterile fashion. Timeout was performed. A weighted speculum inserted to the patient's vagina. Ring retractor was utilized. Cervix was grasped at 12 o'clock position using a single tooth tenaculum. I then gently sound uterine cavity and that was found to be approximately 8 cm. I then gently dilated cervix using Hanks dilators to maximum dilatation approximately 8 mm, at which point I advanced the hysteroscope into the uterine cavity, which appears to be without defect. There was fluffy amount of endometrial tissue. I then removed the TruClear normal saline hysteroscope at that point and I proceeded with the Kayla endometrial ablation. I set and find the depth of the endometrial cavity to be approximately 5 cm and set the Kayla device appropriately. I then deployed the device within the uterine cavity. I also inflate the Seal balloon and then activated the Kayla device. The checklist is adequately met and 120 seconds of cauterization using the Kayla device is implemented, after which the procedure is complete, I deflate the Seal device and removed the Kayla with evidence of cauterization of the lining of the uterus noted on the device. I then take one final look with the hysteroscope and there is evidence of cautery of the endometrium noted and documented with hysteroscopy. I then removed the hysteroscope and all the other instruments from the patient's vagina. The patient tolerated the procedure well and was taken to recovery area in stable condition. Lap and sponge counts were correct at the end of the procedure. Instrument counts correct as well. Job ID: [id number] DocumentID: [id number] Dictated Date: 05/07/2023 11:16:53 [facility] Manager Date: 05/07/2023 15:01:00 Dictated By: OVIDIO GIRON DO
== END 2023-05-07 13:40 | disposition home or self-care (01) ==
LOC: SDC 08:35
PROVIDERS: ATTEND Obstetrics & Gynecology
DX: N93.9 Abnormal uterine and vaginal bleeding, unspecified (principal); N84.0 Polyp of corpus uteri; Z28.310 Unvaccinated for COVID-19; Z87.891 Personal history of nicotine dependence
CPT/HCPCS: 36415; 84703; 85025; 86850; 86900; 86901; 87081

== ENCOUNTER 2023-06-30 13:18 | Emergency (ER) | payer OTHER ==
[~2023-06-30] VITALS: Ht 172.7 cm; Wt 68.0 kg
[~2023-06-30 13:18] MED LIST changes: +IBUP-1773 PO
--- NOTE | 2023-06-30 13:48 | ED Abdominal Pain ---
General Chief Complaint: Abdominal/GI Problems Stated Complaint: STOMACH PAIN Nursing Triage Note: PT AMB TO [facility] 7 WITH CC OF UPPER ABD PAIN SINCE 06/28. PT REPORTS VOMITING AND DIARRHEA. DENIES NAUSEA AT THIS TIME Source of Information: Patient Exam Limitations: No Limitations History of Present Illness Date Seen by Provider: Jun 30, 2023 Time Seen by Provider: 13:44 Initial Comments 38-year-old female presents with epigastric pain since Saturday. Diarrhea yesterday no bowel movement today. Has vomited, however not profusely, her appetite has been suppressed secondary to pain. States this is happened 1 other time but it was brief. No history of GERD. Still has her gallbladder. Denies chance of . No fever no melena medic easy or hematemesis. No cough shortness of breath sore throat or headache. Denies possible bad food exposure. Denies alcohol use denies marijuana use Timing/Duration: 2-3 Days Severity/Quality: Severe Location: Epigastric Radiation: No Radiation Activities at Onset: None Associated Symptoms: Nausea/Vomiting Allergies and Home Medications Allergies Coded Allergies: No Known Drug Allergies (Unverified , 05/02/23) Patient Home Medication List Home Medication List Reviewed: Yes Hydrocodone/Acetaminophen (Hydrocodone-Acetamin 5-325 mg) 5 Mg-325 Mg Tablet, 1 EA PO Q4H PRN for PAIN-MODERATE (5-7) Prescribed by: BRANT GIRON on 05/07/23 1023 Ibuprofen (Ibuprofen) 600 Mg Tablet, 600 MG PO Q6H Prescribed by: BRANT GIRON on 05/07/23 1022 Review of Systems Review of Systems Constitutional: no symptoms reported EENTM: No Symptoms Reported Respiratory: No Symptoms Reported Cardiovascular: No Symptoms Reported Gastrointestinal: Abdominal Pain, Diarrhea, Nausea, Poor Appetite, Vomiting Genitourinary: No Symptoms Reported Musculoskeletal: no symptoms reported Skin: no symptoms reported Psychiatric/Neurological: No Symptoms Reported Endocrine: No Symptoms Reported Hematologic/Lymphatic: No Symptoms Reported All Other Systems Reviewed Negative Unless Noted: Yes Past Umobizf-Pwjeyj-Rszaoh Hx Patient Social History Tobacco Use?: Yes Tobacco type used: Cigarettes Smoking Status: Current Everyday Smoker Use of E-Cig and/or Vaping dev: Yes E-Cig or Vaping type used: Nicotine Use of E-Cig and/or Vaping Benedict: Current Everyday User Substance use?: No Alcohol Use?: No Immunizations Up To Date Tetanus Booster (TDap): Unknown First/Initial COVID19 Vaccinat: NONE Second COVID19 Vaccination Sesar: NONE Third COVID19 Vaccination Date: NONE Seasonal Allergies Seasonal Allergies: Yes Past Medical History Surgery/Hospitalization HX: depression, tubal ligation complicated by post-op sepsis 11 years ago,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 Surgeries: Yes Tubal Ligation Respiratory: No Currently Using CPAP: No Currently Using BIPAP: No Cardiac: No Neurological: No Female Reproductive Disorders: Menstrual Problems 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 PYLORI) Musculoskeletal: No Endocrine: No HEENT: Yes (WEARS GLASSES) Loss of Vision: Denies Hearing Impairment: Denies Cancer: No (ATYPICAL CELLS IN CERVIX) Psychosocial: Yes Anxiety, PTSD, Depression Integumentary: No Blood Disorders: Yes (CHRONIC ANEMIA) Adverse Reaction/Blood Tranf: No Physical Exam Vital Signs Vital Signs - First Documented 06/30/23 13:31 Temp 36.8 Pulse 81 Resp 16 B/P (MAP) 119/88 (98) Pulse Ox 99 O2 Delivery Room Air Capillary Refill : Less Than 3 Seconds Height/Weight/BMI Height: '" Weight: lbs. oz. kg; 22.00 BMI Method: General Appearance: WD/WN, mild distress (Tearful) HEENT: PERRL/EOMI, pharynx normal (Mildly dry) Neck: non-tender, full range of motion Respiratory: chest non-tender, lungs clear, normal breath sounds, no respiratory distress Cardiovascular: regular rate, rhythm Gastrointestinal: tenderness (Epigastric, mild right upper quadrant) Extremities: normal range of motion, non-tender Back: no vertebral tenderness Neurologic/Psychiatric: demographic analyst II-XII nml as tested, no motor/sensory deficits, alert, normal mood/affect, oriented x 3 Skin: normal color, warm/dry Progress/Results/Core Measures Results/Orders Lab Results Laboratory Tests Test 06/30/23 13:35 06/30/23 14:29 Range/Units White Blood Count 7.9 4.3-11.0 10^3/uL Red Blood Count 5.07 3.80-5.11 10^6/uL Hemoglobin 14.5 11.5-16.0 g/dL Hematocrit 44 35-52 % Mean Corpuscular Volume 87 80-99 fL Mean Corpuscular Hemoglobin 29 25-34 pg Mean Corpuscular Hemoglobin Concent 33 32-36 g/dL Red Cell Distribution Width 12.5 10.0-14.5 % Platelet Count 319 130-400 10^3/uL Mean Platelet Volume 9.9 9.0-12.2 fL Immature Granulocyte % (Auto) 0 % Neutrophils (%) (Auto) 58 42-75 % Lymphocytes (%) (Auto) 33 12-44 % Monocytes (%) (Auto) 7 0-12 % Eosinophils (%) (Auto) 1 0-10 % Basophils (%) (Auto) 1 0-10 % Neutrophils # (Auto) 4.6 1.8-7.8 10^3/uL Lymphocytes # (Auto) 2.6 1.0-4.0 10^3/uL Monocytes # (Auto) 0.5 0.0-1.0 10^3/uL Eosinophils # (Auto) 0.1 0.0-0.3 10^3/uL Basophils # (Auto) 0.0 0.0-0.1 10^3/uL Immature Granulocyte # (Auto) 0.0 0.0-0.1 10^3/uL Sodium Level 139 135-145 MMOL/L Potassium Level 3.9 3.6-5.0 MMOL/L Chloride Level 104 98-107 MMOL/L Carbon Dioxide Level 24 21-32 MMOL/L Anion Gap 11 5-14 MMOL/L Blood Urea Nitrogen 8 7-18 MG/DL Creatinine 0.93 0.60-1.30 MG/DL Estimat Glomerular Filtration Rate 82 BUN/Creatinine Ratio 9 Glucose Level 95 70-105 MG/DL Calcium Level 10.3 H 8.5-10.1 MG/DL Corrected Calcium 8.5-10.1 MG/DL Total Bilirubin 0.5 0.1-1.0 MG/DL Aspartate Amino Transf (AST/SGOT) 18 5-34 U/L Alanine Aminotransferase (ALT/SGPT) 18 0-55 U/L Alkaline Phosphatase 91 40-136 U/L Total Protein 8.4 H 6.4-8.2 GM/DL Albumin 4.8 H 3.2-4.5 GM/DL Lipase 12 8-78 U/L Urine Color YELLOW Urine Clarity CLEAR Urine pH 6.5 5-9 Urine Specific [place] <=1.005 1.016-1.022 Urine Protein NEGATIVE NEGATIVE Urine Glucose (UA) NEGATIVE NEGATIVE Urine Ketones NEGATIVE NEGATIVE Urine Nitrite NEGATIVE NEGATIVE Urine Bilirubin NEGATIVE NEGATIVE Urine Urobilinogen 0.2 < = 1.0 MG/DL Urine Leukocyte Esterase NEGATIVE NEGATIVE Urine RBC (Auto) TRACE H NEGATIVE Urine RBC RARE /HPF Urine WBC NONE /HPF Urine Squamous Epithelial Cells 5-10 /HPF Urine Crystals PRESENT H /LPF Urine Amorphous Sediment RARE ALISHA URATES H /LPF Urine Bacteria FEW H /HPF Urine Casts NONE /LPF Urine Mucus NEGATIVE /LPF Urine Culture Indicated NO My Orders Orders - SHINE MORRIS W DO Comprehensive Metabolic Panel (06/30/23 13:49) Lipase (06/30/23 13:49) Ua Culture If Indicated (06/30/23 13:49) Cbc And Automated Diff (06/30/23 13:49) Ct Abdomen/Pelvis W (06/30/23 13:49) Ondansetron Injection (Ondansetron Inj (06/30/23 14:00) Lidocaine 2% Viscous 15 Ml (Xylocaine Vi (06/30/23 14:00) Ns Iv 1000 Ml (Ns Iv 1000 Ml) (06/30/23 13:49) Antacid Suspension (Antacid Suspension (06/30/23 14:00) Iohexol Injection (Omnipaque 350 Mg/Ml 1 (06/30/23 14:15) Ns (Ivpb) 100 Ml (Sodium Chloride 0.9% 1 (06/30/23 14:15) Medications Given in ED Current Medications Medications Dose Ordered Sig/Ganesh Route Start Time Stop Time Status Last Admin Dose Admin Al Hydrox/Mg Hydrox/Simethicone 30 ml ONCE ONCE PO 06/30/23 14:00 06/30/23 14:01 DC 06/30/23 13:57 30 ML Iohexol 100 ml ONCE ONCE IV 06/30/23 14:15 06/30/23 14:16 DC 06/30/23 14:18 80 ML Lidocaine HCl 15 ml ONCE ONCE PO 06/30/23 14:00 06/30/23 14:01 DC 06/30/23 13:57 15 ML Ondansetron HCl 4 mg ONCE ONCE IVP 06/30/23 14:00 06/30/23 14:01 DC 06/30/23 13:58 4 MG Sodium Chloride 100 ml ONCE ONCE IV 06/30/23 14:15 06/30/23 14:16 DC 06/30/23 14:18 80 ML Vital Signs/I&O 06/30/23 13:31 Temp 36.8 Pulse 81 Resp 16 B/P (MAP) 119/88 (98) Pulse Ox 99 O2 Delivery Room Air Blood Pressure Mean: 98 Progress Progress Note : Progress Note 1347 patient is tearful. Indicating pain in epigastric region. Heart rate 87 blood pressure 107/80. States she still is her gallbladder denies chance of . Does not have a history of GERD or ulcers that she is aware of. No hematemesis although she has vomited a couple times no melena hematochezia she did have diarrhea yesterday no bowel movement today. Decreased appetite and p.o . intake secondary to discomfort. No fever no abdominal distention. Will obtain "belly labs "and determine need for either CT or ultrasound. Will attempt to achieve comfort with GI cocktail initially. CBC and chemistry unremarkable. Lipase is not elevated. CT is negative for any acute pathology. Urinalysis unremarkable. Patient is laughing with in the room after GI cocktail. Will prescribe PPI for epigastric pain. Advise follow-up with primary care for evaluation of potential gastric ulcers. We will also provide Zofran for nausea if this is to recur again. Patient agrees. Diagnostic Imaging Diagonstic Imaging: CT Plain Films/CT/US/NM/MRI: abdomen Reviewed: Reviewed [facility] Study CT Results/Progress Notes FINDINGS: Lower chest: The lung bases are clear. No pericardial or pleural effusion. Peritoneum: No free intraperitoneal air or fluid. Liver and biliary system: The liver is normal. Gallbladder is normal. No biliary duct dilatation. Spleen and Pancreas: Spleen is normal. The pancreas enhances normally without mass lesion or peripancreatic inflammatory changes. Adrenals: Normal. tract: The kidneys enhance normally without suspicious mass or obstruction. Urinary bladder is distended without wall thickening. Uterus and ovaries are normal in appearance. GI tract: Stomach is decompressed. No bowel obstruction. No pericolonic inflammatory changes. Normal appendix. Vasculature and Lymph nodes: Normal caliber aorta. No abdominal or pelvic lymphadenopathy. Musculoskeletal: No concerning osseous lesion. IMPRESSION: No acute obstructive or inflammatory process. Departure Impression Primary Impression: Epigastric pain Disposition: HOME, SELF-CARE Condition: Improved Departure-Patient Inst. Referrals: DEREK HOWARD DO (PCP/Family) Primary Care Physician Patient Instructions: Abdominal Pain, Adult ED, Peptic Ulcers (DC) Scripts Cimetidine (Acid Machine Egg Washer (CIMETIDINE)) 200 Mg Tablet 200 MG PO BID for 14 Days, #28 TAB Prov: SHINE MORRIS DO 06/30/23 Sucralfate (Sucralfate) 1 Gram/10 Ml Oral.susp 1 GM PO ACHS for 7 Days, #120 ML Prov: SHINE MORRIS DO 06/30/23 Ondansetron (Ondansetron Odt) 4 Mg Tab.rapdis 4 MG PO Q6H PRN for NAUSEA/VOMITING, #20 TAB 0 Refills Prov: SHINE MORRIS DO 06/30/23 SHINE MORRIS DO Jun 30, 2023 13:48
[2023-06-30] MEDS ORDERED: NS IV 1000 ML 1,000 ML IV STA (13:49)
[2023-06-30 13:56] LABS: BASOPHILS % (AUTO) 1 % (0-10); EOSINOPHILS # (AUTO) 0.1 10^3/uL (0.0-0.3); EOSINOPHILS % (AUTO) 1 % (0-10); HEMATOCRIT 44 % (35-52); HEMOGLOBIN 14.5 g/dL (11.5-16.0); LYMPHOCYTES # (AUTO) 2.6 10^3/uL (1.0-4.0); LYMPHOCYTES % (AUTO) 33 % (12-44); MEAN CORPUSCULAR HEMOGLOBIN 29 pg (25-34); MEAN CORPUSCULAR HGB CONC 33 g/dL (32-36); MEAN CORPUSCULAR VOLUME 87 fL (80-99); MEAN PLATELET VOLUME 9.9 fL (9.0-12.2); MONOCYTES # (AUTO) 0.5 10^3/uL (0.0-1.0); MONOCYTES % (AUTO) 7 % (0-12); NEUTROPHILS # (AUTO) 4.6 10^3/uL (1.8-7.8); NEUTROPHILS % (AUTO) 58 % (42-75); PLATELET COUNT 319 10^3/uL (130-400); WHITE BLOOD COUNT 7.9 10^3/uL (4.3-11.0)
[2023-06-30] MEDS ORDERED: ONDANSETRON INJECTION 4 MG/2 ML (SDV) IVP ONE (14:00)
[2023-06-30] MEDS ORDERED: LIDOCAINE 2% VISCOUS 15 ML UDC PO ONE (14:00)
[2023-06-30] MEDS ORDERED: ANTACID SUSPENSION 30 ML UDC PO ONE (14:00)
[2023-06-30 14:01] LABS: ALBUMIN 4.8 GM/DL (3.2-4.5); CHLORIDE 104 MMOL/L (98-107); POTASSIUM 3.9 MMOL/L (3.6-5.0); SODIUM 139 MMOL/L (135-145)
[2023-06-30 14:02] LABS: CALCIUM 10.3 MG/DL (8.5-10.1)
[2023-06-30 14:03] LABS: GLUCOSE 95 MG/DL (70-105)
[2023-06-30 14:04] LABS: TOTAL PROTEIN 8.4 GM/DL (6.4-8.2)
[2023-06-30 14:05] LABS: BILIRUBIN,TOTAL 0.5 MG/DL (0.1-1.0); CARBON DIOXIDE 24 MMOL/L (21-32)
[2023-06-30 14:07] LABS: ALKALINE PHOSPHATASE 91 U/L (40-136); CREATININE SERUM 0.93 MG/DL (0.60-1.30); GFR ESTIMATED 82
[2023-06-30 14:08] LABS: BUN/CREATININE RATIO 9
[2023-06-30 14:10] LABS: ALANINE AMINOTRANSFERASE 18 U/L (0-55)
[2023-06-30 14:11] LABS: LIPASE 12 U/L (8-78)
[2023-06-30] MEDS ORDERED: IOHEXOL 350 MG/ML 100 ML (OMNIPAQUE 350) VIAL IV ONE (14:15)
[2023-06-30] MEDS ORDERED: NS 100 ML (IVPB) BAG IV ONE (14:15)
--- NOTE | 2023-06-30 14:33 | Diagnostic Imaging Report ---
CT ABDOMEN/PELVIS W TECHNIQUE: Multiple contiguous axial images were obtained through the abdomen and pelvis after administration of intravenous contrast. All CT scans use one or more of the following dose optimizing techniques: automated exposure control, MA and/or KvP adjustment based on patient size and exam type or iterative reconstruction. INDICATION: Epigastric pain COMPARISON: 03/26/2022 FINDINGS: Lower chest: The lung bases are clear. No pericardial or pleural effusion. Peritoneum: No free intraperitoneal air or fluid. Liver and biliary system: The liver is normal. Gallbladder is normal. No biliary duct dilatation. Spleen and Pancreas: Spleen is normal. The pancreas enhances normally without mass lesion or peripancreatic inflammatory changes. Adrenals: Normal. tract: The kidneys enhance normally without suspicious mass or obstruction. Urinary bladder is distended without wall thickening. Uterus and ovaries are normal in appearance. GI tract: Stomach is decompressed. No bowel obstruction. No pericolonic inflammatory changes. Normal appendix. Vasculature and Lymph nodes: Normal caliber aorta. No abdominal or pelvic lymphadenopathy. Musculoskeletal: No concerning osseous lesion. IMPRESSION: No acute obstructive or inflammatory process. Dictated by: Dictated on workstation # [id number]
[2023-06-30 15:17] LABS: CLARITY,URINE CLEAR; COLOR,URINE YELLOW; GLUCOSE, URINE (UA) NEGATIVE (NEGATIVE); PH,URINE 6.5 (5-9); PROTEIN,URINE NEGATIVE (NEGATIVE)
[2023-06-30 15:18] LABS: BACTERIA,URINE FEW /HPF; BILIRUBIN,URINE NEGATIVE (NEGATIVE); KETONES,URINE NEGATIVE (NEGATIVE); LEUKOCYTE ESTERASE ,URINE NEGATIVE (NEGATIVE); NITRITE,URINE NEGATIVE (NEGATIVE); RBC,URINE RARE /HPF
[2023-06-30 15:19] LABS: AMORPHOUS SEDIMENT,UR RARE AMOR URATES /LPF
[2023-06-30] MEDS ORDERED: CIME200T90 PO (15:32)
[2023-06-30] MEDS ORDERED: SUCR1ORA15 PO (15:32)
[2023-06-30] MEDS ORDERED: ONDA4TAB11 PO (15:32)
[2023-06-30 15:40] VITALS: BP 124/94
== END 2023-06-30 15:43 | disposition home or self-care (01) ==
LOC: EDUNIT# 13:18 → ER 13:19
DX: R10.13 Epigastric pain (principal); R11.2 Nausea with vomiting, unspecified; F17.210 Nicotine dependence, cigarettes, uncomplicated; F17.290 Nicotine dependence, other tobacco product, uncomplicated; Z28.310 Unvaccinated for COVID-19
CPT/HCPCS: 36415; 74177; 80053; 81000; 83690; 85025

== ENCOUNTER 2023-08-20 05:28 | Outpatient (CLI) | payer OTHER ==
[~2023-08-20] VITALS: Ht 167.7 cm; Wt 67.0 kg
[~2023-08-20 05:28] MED LIST changes: +CIME200T90 PO; +ONDA4TAB11 PO; +SUCR1ORA15 PO
== END 2023-08-20 15:00 | disposition home or self-care (01) ==
LOC: PREOP 05:28
PROVIDERS: ATTEND Obstetrics & Gynecology
DX: Z01.818 Encounter for other preprocedural examination (principal)